=== PATIENT | male | born 1950 | race Caucasian/White ===

== ENCOUNTER → 2017-05-12 | Outpatient (CLI) | payer MEDICARE ==
--- NOTE | 2017-05-12 09:45 | MR ---
EXAMINATION TYPE: MR shoulder RT wo con DATE OF EXAM: 05/12/2017 COMPARISON: NONE HISTORY: Right shoulder pain and lack of movement TECHNIQUE: Multiplanar, multisequence imaging of the right shoulder is performed without contrast. FINDINGS: Rotator Cuff: Intrasubstance signal seen involving the distal margins of the infraspinatus and supras pinatus tendons near the insertion. Findings compatible with tendinosis and partial tear with no ret raction. Acromioclavicular Joint: Hypertrophic change and narrowing of the AC joint noted. There is no mass ef fect suggest impingement. Glenohumeral Joint: Joint space appears to be preserved. There is truncation of the anterior superior labrum suspicious for tear. Labrum: Truncation of the anterior superior labrum suspicious for tear. Biceps Tendon: There is thickening and increased signal the intracapsular portion of the biceps tendo n and biceps anchor compatible severe tendinosis and partial intrasubstance tear with no evidence of through thickness tear or retraction. Bone marrow signal: Cystic change involving the humeral head likely in the basis of reactive changes. IMPRESSION: 1. Marked thickening and increased signal in the intracapsular portion of the biceps tendon and bicep s anchor compatible severe tendinosis and intrasubstance tear. No through thickness tear or retractio n. 2. Tendinosis of the distal infraspinatus and supraspinatus tendons with partial intrasubstance tear but no evidence of retraction. Partial through thickness tear of the anterior fibers of the supraspin atus tendon near the insertion. 3. Anterior superior labral tear 4. Increased signal within the rotator cuff interval suggestive of capsulitis correlate clinically
== END | disposition home or self-care (01) ==
LOC: RADMRIMAIN 08:24
PROVIDERS: ATTEND Orthopaedic Surgery
DX: M75.111 Incomplete rotator cuff tear or rupture of right shoulder, not specified as traumatic (principal); S46.811A Strain of other muscles, fascia and tendons at shoulder and upper arm level, right arm, initial encounter; S43.401A Unspecified sprain of right shoulder joint, initial encounter; M67.911 Unspecified disorder of synovium and tendon, right shoulder

== ENCOUNTER 2017-07-15 13:21 | Day surgery (SDC) | payer MEDICARE ==
[2017-07-01 12:06] VITALS: BMI 27.8
--- NOTE | 2017-07-11 15:31 | HP ---
HISTORY AND PHYSICAL CHIEF COMPLAINT: Right shoulder pain. HISTORY OF PRESENT ILLNESS: The patient is a 66-year-old, right-hand dominant, retired gentleman who presents with progressive right shoulder pain for the past several months. He denies any specific new injury. He is having pain with overhead use and at night. He has tried medications, an injection, and therapy with minimal relief. He notes the pain does limit him. PAST MEDICAL HISTORY: Significant for hypertension, hyperlipidemia. PAST SURGICAL HISTORY: Significant for appendectomy, right knee surgery, tonsillectomy, vasectomy and hernia repair. CURRENT MEDICATIONS: 1. Aleve. 2. Aspirin. 3. Doxazosin. 4. Simvastatin. He denies drug allergies. FAMILY HISTORY: Significant for cancer. SOCIAL HISTORY: Significant for social alcohol use. 16-POINT REVIEW OF SYSTEMS: Otherwise reviewed and is noncontributory. PHYSICAL EXAMINATION: The patient is approximately 5 foot 11, 200 pounds of endomorphic habitus. HEENT exam is nonfocal. Neck is supple. On examination of his right shoulder, he is tender about the anterior subacromial space and bicipital groove. He has moderate subacromial crepitus. Active range of motion, forward elevation 155 degrees, external rotation with the arm side 55 degrees. Internal rotation to L1. Motor strength is 5- /5 for external rotation with the arms at the side and 5-/5 for abduction. Impingement, NEER, and Speed tests are positive. His distal neurovascular exam otherwise appears intact in the right upper extremity. MRI report from 05/12/2017 of the right shoulder shows bicipital tendinosis and possible SLAP tear. There is also rotator cuff tendinosis and possible partial- thickness tear. IMPRESSION: 1. Right shoulder impingement syndrome with rotator cuff tendinitis and possible partial-thickness tear. 2. Right bicipital tendinosis with possible SLAP tear as well. RECOMMENDATIONS: I talked to the patient at length regarding his treatment options. At this point, he continues to have significant pain and symptoms despite conservative measures. After thorough discussion, he opts to proceed with surgery. We will plan to proceed with right shoulder arthroscopy with probable subacromial decompression, possible rotator cuff repair versus debridement, and in addition to possible bicipital tendon release. We will likely perform that as an outpatient procedure. Risks and benefits were discussed at length in layman's terms. MMODL / IJN: [id number] /
[~2017-07-15 13:21] MED LIST: DEXAMETHASONE SOD PHOSPHATE 10 MG/ML 1 ML VIAL IV ONE; HYDROmorphone 1 MG/ML 1 ML SYRINGE IVP PRN; LACTATED RINGERS 1,000 ML IV SCH; LIDOCAINE 1% 20 ML VIAL (10MG/ML) FOR IV START INTRADERMA PRN; ONDANSETRON 4 MG/2 ML VIAL IVP ONE; SCOPOLAMINE 1.5MG/72HR PATCH TRANSDERM ONE; ceFAZolin 2 GM in SODIUM CHLORIDE 0.9% 100 ML IVPB ONE
[2017-07-15] MEDS ORDERED: MIDAZOLAM 2 MG/2 ML VIAL IV ONE (14:47)
[2017-07-15] MEDS ORDERED: fentaNYL (PF) 50 MCG/ML 2 ML AMP ONE (16:49)
[2017-07-15] MEDS ORDERED: PROPOFOL 10 MG/ML 20 ML VIAL IV ONE (16:49)
[2017-07-15] MEDS ORDERED: SUCCINYLCHOLINE CHLORIDE 100 MG/5 ML SYR IV ONE (16:49)
[2017-07-15] MEDS ORDERED: GLYCOPYRROLATE 0.2 MG/ML 2 ML VIAL ONE (16:49)
[2017-07-15] MEDS ORDERED: LIDOCAINE 1% INJ 10MG/ML (20 ML MDV) ONE (16:49)
[2017-07-15] MEDS ORDERED: ROCURONIUM BROMIDE 10 MG/ML 10 ML VIAL IV ONE (16:49)
[2017-07-15] MEDS ORDERED: NEOSTIGMINE 1 MG/ML 10 ML VIAL ONE (16:49)
[2017-07-15] MEDS ORDERED: ePHEDrine 50 MG/ML 1 ML AMP ONE (16:49)
[2017-07-15] MEDS ORDERED: MIDAZOLAM 2 MG/2 ML VIAL ONE (16:49)
[2017-07-15] MEDS ORDERED: EPINEPHrine (PF) 1 ML in SODIUM CHLORIDE 0.9% IRRIGATIO 3,000 ML IRRIGATION ONE ×7 (17:23→17:24)
--- NOTE | 2017-07-15 17:57 | P.OP ---
Date of Procedure: 07/15/17 Preoperative Diagnosis: Right shoulder impingement syndrome/partial thickness rotator cuff tear/ superior labral tear Postoperative Diagnosis: Same in addition to a partial thickness bursal surface rotator cuff tear/type II SLAP tear Procedure(s) Performed: Right shoulder arthroscopic subacromial decompression/superior labral debridement/biceps tenotomy/rotator cuff debridement Implants: Anesthesia: mechelle SIMMS Surgeon: Frank Sanchez [employer] Assembler #1: Florencio Hernandez Estimated Blood Loss (ml): 10 Pathology: none sent Condition: stable Disposition: PACU Indications for Procedure: The patient's a 66-year-old male who presents with progressive right shoulder pain despite conservative measures. A discussion of the risks and benefits of operative intervention versus continued conservative measures was made with the patient. He opted to proceed with surgery. Operative risks to include infection, neurovascular injury, development of blood clots, possible incomplete resolution of symptoms, possible worsening of symptoms and need for subsequent procedures was discussed. Informed consent was obtained. Operative Findings: As below Description of Procedure: The patient was brought to the operating room, and after induction of anesthesia , I examined the right shoulder. There is no gross block to passive motion. There is no gross glenohumeral instability. He is placed into a beachchair position. The bony processes were appropriately padded. The right upper extremity was prepped and draped in a normal fashion. The bony outlines the acromion, distal clavicle, and coracoid process were outlined with a skin marker. The glenohumeral joint was inflated with 50 mL of saline utilizing a spinal needle from posterior approach. A posterior portal was made through a 5 mm skin incision 1 cm medial and inferior to the posterior lateral border of the acromion. A blunt trocar was used to easily into the joint. Diagnostic arthroscopy was performed. An anterior portals made through a 5 motor skin incision just lateral to the coracoid process entering the joint above the subscapularis tendon. On inspection of the articular surface, minimal degenerative changes were noted. The anterior labrum was intact. On inspection the biceps anchor, a type II SLAP tear was noted with detachment. Operative options were considered this point at this point elected to proceed with tenotomy. The biceps was released from the superior labrum and allowed to retract the bicipital groove with the aid of electrocautery. The superior labrum was debrided back to stable base with a motorized shaver. On inspection the rotator cuff on the articular surface, it appeared to be intact. The posterior labrum was intact. The arthroscope was then placed into the subacromial space. A lateral portal was made through a millimeters skin incision 2% 2 cm inferior to the anterolateral border of the acromion. The soft tissue on the undersurface surface of the acromion was debrided with electrocautery clearly defining the anterior medial and lateral borders as well as the distal clavicle. An anterior inferior acromioplasty was performed with a motorized rosalba starting anterolateral, then extending this posteriorly, then extending this medially. I was able to convert to a flat acromion. This was verified on the posterior and lateral viewing portals. The coracoacromial ligament was detached from the anterior acromion with electrocautery. The rotator cuff was inspected. There was significant bursal thickening debrided with a motorized shaver. A partial thickness bursal surface tear involving the anterior aspect the supraspinatus was noted involving approximately 2-3 mm of thickness. This was debrided back to stable base with a motorized shaver. The remaining rotator cuff appeared stable and intact. The arthroscope was then removed. The portals were closed with simple 3-0 nylon suture. A sterile dressing was applied in addition to an abductor brace. Patient was then awoken from general anesthesia and transferred to the recovery room in good condition. Blood loss was estimated 10 mL. No complications were incurred. Sponge and needle counts were correct at the end of the case.
[2017-07-15 17:59] VITALS: TEMP 97
[2017-07-15] MEDS ORDERED: LACTATED RINGERS 1,000 ML IV ONE (18:20)
[2017-07-15 18:28] VITALS: RESP 16
[2017-07-15 18:41] VITALS: PULSE 76
[2017-07-15 18:55] VITALS: BP 150/76
== END 2017-07-15 19:14 | disposition home or self-care (01) ==
LOC: OR 13:21
PROVIDERS: ATTEND Orthopaedic Surgery
DX: M75.101 Unspecified rotator cuff tear or rupture of right shoulder, not specified as traumatic (principal); S43.431A Superior glenoid labrum lesion of right shoulder, initial encounter; X58.XXXA Exposure to other specified factors, initial encounter; I10 Essential (primary) hypertension; E78.5 Hyperlipidemia, unspecified; G25.81 Restless legs syndrome; Z79.1 Long term (current) use of non-steroidal anti-inflammatories (NSAID); Z79.899 Other long term (current) drug therapy
CPT/HCPCS: 29826; 29823; J2250; J1100; J2710; J0690; J2405; J0171; J2001; J3010; J0330; J2704

== ENCOUNTER 2018-06-14 18:59 | Emergency (ER) | payer MEDICARE ==
[2018-06-14] MEDS ORDERED: SODIUM CHLORIDE 0.9% 1,000 ML IV ONE (19:27)
[2018-06-14] MEDS ORDERED: ACETAMINOPHEN TAB 500 MG TAB PO STA (19:37)
[2018-06-14] MEDS ORDERED: IPRATROPIUM-ALBUTEROL 3 ML NEB INHALATION STA (19:37)
[2018-06-14] MEDS ORDERED: IBUPROFEN 600 MG TAB PO STA (19:37)
--- NOTE | 2018-06-14 19:44 | ED ---
URI HPI - General Chief Complaint: Upper Respiratory Infection Stated Complaint: POSS BRONCHITIS OR PNEUMONIA Time Seen by Provider: 06/14/18 19:24 Source: patient, RN notes reviewed Mode of arrival: ambulatory Limitations: no limitations - History of Present Illness Initial Comments: 67-year-old male presents emergency Department chief complaint fever, cough congestion. Patient states she's been sick 3 times last 1 month. He is been treated twice with azithromycin, steroids. In states that last 24 hours she developed high fever, 103 along with a productive cough. Patient has minimal sinus congestion at this time. He states that he aches all over at this time. Patient states that he has no history of lung disease he states he was a former smoker 20 some years ago. He has no official diagnosis COPD. Patient denies any sick contacts denies ear pain, abdominal pain, dysuria or hematuria. Patient does have mild nausea and headache. Patient denies any neck pain or neck stiffness. He has not taken any Tylenol or Motrin for his headache. - Related Data Home Medications Medication Instructions Recorded Confirmed Aspirin [Adult Low Dose Aspirin EC] 81 mg PO HS 07/01/17 07/01/17 Doxazosin Mesylate [Cardura] 8 mg PO HS 07/01/17 07/01/17 Multivitamin [Men's Multi-Vitamin] 1 each PO HS 07/01/17 07/01/17 Simvastatin 40 mg PO HS 07/01/17 07/01/17 rOPINIRole HCL 4 mg PO HS 07/01/17 07/01/17 Previous Rx's Medication Instructions Recorded HYDROcodone/APAP 7.5-325MG [[place] 1 each PO Q6HR PRN #30 tab 07/15/17 7.5] Levofloxacin [Levaquin] 500 mg PO DAILY #7 tab 06/14/18 Allergies Allergy/AdvReac Type Severity Reaction Status Date / Time pollen extracts AdvReac itchy Verified 07/15/17 14:31 eyes, congestion Review of Systems ROS Statement: Those systems with pertinent positive or pertinent negative responses have been documented in the HPI. ROS Other: All systems not noted in ROS Statement are negative. Past Medical History Past Medical History: Hyperlipidemia, Hypertension Additional Past Medical History / Comment(s): restless leg syndrome History of Any Multi-Drug Resistant Organisms: None Reported Past Surgical History: Appendectomy, Hernia Repair, Orthopedic Surgery, Tonsillectomy Additional Past Surgical History / Comment(s): R Knee, Vasectomy Past Anesthesia/Blood Transfusion Reactions: No Reported Reaction Past Psychological History: No Psychological Hx Reported Smoking Status: Former smoker Past Alcohol Use History: Occasional Past Drug Use History: None Reported - Past Family History Mother Family Medical History: Cancer General Exam Limitations: no limitations General appearance: alert, in no apparent distress Head exam: Present: atraumatic, normocephalic, normal inspection Eye exam: Present: normal appearance, PERRL, EOMI. Absent: scleral icterus, conjunctival injection, periorbital swelling ENT exam: Present: normal exam, normal oropharynx, mucous membranes moist, TM's normal bilaterally, normal external ear exam Neck exam: Present: normal inspection, full ROM. Absent: tenderness, meningismus, lymphadenopathy Respiratory exam: Present: normal lung sounds bilaterally. Absent: respiratory distress, wheezes, rales, rhonchi, stridor Cardiovascular Exam: Present: normal rhythm, tachycardia, normal heart sounds. Absent: systolic murmur, diastolic murmur, rubs, gallop, clicks GI/Abdominal exam: Present: soft, normal bowel sounds. Absent: distended, tenderness, guarding, rebound, rigid Neurological exam: Present: alert, oriented X3, CN II-XII intact Skin exam: Present: warm, dry, intact, normal color. Absent: rash Course Vital Signs 06/14/18 06/14/18 06/14/18 19:14 19:19 20:18 Temperature 103 F H Pulse Rate 104 H 86 Respiratory 20 21 Rate Blood Pressure 151/69 O2 Sat by Pulse 93 L Oximetry 06/14/18 06/14/18 20:25 20:51 Temperature 102.1 F H Pulse Rate 83 78 Respiratory 19 Rate Blood Pressure 122/61 O2 Sat by Pulse 96 Oximetry Medical Decision Making - Medical Decision Making 67-year-old male present emergency department with chief complaint of cough congestion fever. Patient had lab work, blood cultures, chest x-ray. There is no evidence of pneumonia. I discussed with the patient that this may be viral in nature. Patient will place him on for 7 days pending blood cultures. Patient follow-up with PCP tomorrow return parameters were discussed. - Lab Data Result diagrams: 06/14/18 19:40 06/14/18 19:40 Lab Results 06/14/18 06/14/18 06/14/18 Range/Units 19:40 19:40 19:40 WBC 4.3 (3.8-10.6) k/uL RBC 4.78 (4.30-5.90) m/uL Hgb 13.8 (13.0-17.5) gm/dL Hct 43.6 (39.0-53.0) % MCV 91.1 (80.0-100.0) fL MCH 28.9 (25.0-35.0) pg MCHC 31.8 (31.0-37.0) g/dL RDW 14.0 (11.5-15.5) % Plt Count 167 (150-450) k/uL Neutrophils % 82 % Lymphocytes % 7 % Monocytes % 7 % Eosinophils % 2 % Basophils % 0 % Neutrophils # 3.5 (1.3-7.7) k/uL Lymphocytes # 0.3 L (1.0-4.8) k/uL Monocytes # 0.3 (0-1.0) k/uL Eosinophils # 0.1 (0-0.7) k/uL Basophils # 0.0 (0-0.2) k/uL Sodium 139 (137-145) mmol/L Potassium 4.2 (3.5-5.1) mmol/L Chloride 106 (98-107) mmol/L Carbon Dioxide 26 (22-30) mmol/L Anion Gap 7 mmol/L BUN 19 (9-20) mg/dL Creatinine 1.20 (0.66-1.25) mg/dL Est GFR (CKD-EPI)AfAm 72 (>60 ml/min/1.73 sqM) Est GFR (CKD-EPI)NonAf 62 (>60 ml/min/1.73 sqM) Glucose 89 (74-99) mg/dL Plasma Lactic Acid Balwinder 1.0 (0.7-2.0) mmol/L Calcium 9.2 (8.4-10.2) mg/dL Total Bilirubin 0.3 (0.2-1.3) mg/dL AST 32 (17-59) U/L ALT 44 (21-72) U/L Alkaline Phosphatase 59 (38-126) U/L Total Protein 6.3 (6.3-8.2) g/dL Albumin 4.0 (3.5-5.0) g/dL Disposition Clinical Impression: Fever, Upper respiratory infection Disposition: HOME SELF-CARE Condition: Stable Instructions: Upper Respiratory Infection (ED) Additional Instructions: Please return to the Emergency Department if symptoms worsen or any other concerns. Prescriptions: Levofloxacin [Levaquin] 500 mg PO DAILY #7 tab Is patient prescribed a controlled substance at d/c from ED?: No Referrals: Unruly Melendrez MD [Primary Care Provider] - 1-2 days Time of Disposition: 21:04
[2018-06-14 19:58] LABS: Basophils % (A) 0 %; Eosinophils # (A) 0.1 k/uL (0-0.7); Eosinophils % (A) 2 %; HCT 43.6 % (39.0-53.0); HGB 13.8 gm/dL (13.0-17.5); Lymphocytes # (A) 0.3 k/uL (1.0-4.8); Lymphocytes % (A) 7 %; MCH 28.9 pg (25.0-35.0); MCHC 31.8 g/dL (31.0-37.0); MCV 91.1 fL (80.0-100.0); Mean Platelet Volume 8.8; Monocytes # (A) 0.3 k/uL (0-1.0); Monocytes % (A) 7 %; Neutrophils # (A) 3.5 k/uL (1.3-7.7); Neutrophils % (A) 82 %; Platelet Count 167 k/uL (150-450); RBC 4.78 m/uL (4.30-5.90); WBC 4.3 k/uL (3.8-10.6)
[2018-06-14 20:09] LABS: Calcium 9.2 mg/dL (8.4-10.2); Potassium 4.2 mmol/L (3.5-5.1); Total Bilirubin 0.3 mg/dL (0.2-1.3); Total Protein 6.3 g/dL (6.3-8.2)
--- NOTE | 2018-06-14 20:37 | XR ---
EXAMINATION TYPE: XR chest 2V DATE OF EXAM: 06/14/2018 COMPARISON: None HISTORY: 67-year-old male cough and fever TECHNIQUE: PA and lateral views FINDINGS: Heart upper limits of normal in size. Aorta and pulmonary vasculature within normal limits. Mild inte rstitial prominence is a chronic appearance. Strandy atelectasis at the left base. No consolidation o r pleural effusion. IMPRESSION: Chronic appearing changes without acute process seen. Borderline heart size.
[2018-06-14 20:52] VITALS: PULSE 78
[2018-06-14 21:16] VITALS: TEMP 100
[2018-06-14 21:17] VITALS: BP 116/63; RESP 18
== END 2018-06-14 21:17 | disposition home or self-care (01) ==
LOC: EC 18:59
DX: J06.9 Acute upper respiratory infection, unspecified (principal); R11.0 Nausea; E78.5 Hyperlipidemia, unspecified; I10 Essential (primary) hypertension; G25.81 Restless legs syndrome; Z87.891 Personal history of nicotine dependence; Z79.82 Long term (current) use of aspirin; Z79.899 Other long term (current) drug therapy; Z91.048 Other nonmedicinal substance allergy status
CPT/HCPCS: 36415; 71046; 80053; 83605; 85025; 87040; 94640; 96360; 99284

== ENCOUNTER 2020-07-30 12:25 | Emergency (ER) | payer MEDICARE ==
[2020-07-30 12:31] VITALS: RESP 18; TEMP 98
[2020-07-30] MEDS ORDERED: SODIUM CHLORIDE 0.9% 1,000 ML IV ONE (12:46)
[2020-07-30] MEDS ORDERED: HYDROmorphone 1 MG/ML 1 ML SYRINGE IVP STA ×2 (12:46→15:01)
[2020-07-30] MEDS ORDERED: ONDANSETRON 4 MG/2 ML VIAL IVP STA (12:48)
--- NOTE | 2020-07-30 12:51 | ED ---
General Adult HPI - General Source: patient, RN notes reviewed, old records reviewed Mode of arrival: ambulatory Limitations: no limitations <Bridgett Benjamin - Last Filed: 07/30/20 14:32> <Mj Kaba - Last Filed: 07/30/20 15:56> - General Chief complaint: Back Pain/Injury Stated complaint: Kidney Pain Time Seen by Provider: 07/30/20 12:37 - History of Present Illness Initial comments: Patient is a 69-year-old male who presents the ER today with complaints of left flank pain and ecchymosis and pain with movement after falling into a nightstand on Friday. He reports that he was [place] his [place] doing a [place] outing and fell in the night when it was dark onto the nightstand. Patient reportedly is not on blood thinners. He denies any nausea or vomiting. He states that he awoke with worsening pain and swelling into his back. He states he's had no change in urination. He denies any chest pain. Patient reports that he did golf yesterday and after 4 holes became worse for pain. (Bridgett Benjamin) - Related Data Home Medications Medication Instructions Recorded Confirmed Aspirin [Adult Low Dose Aspirin EC] 81 mg PO HS 07/01/17 07/01/17 Doxazosin Mesylate [Cardura] 8 mg PO HS 07/01/17 07/01/17 Multivitamin [Men's Multi-Vitamin] 1 each PO HS 07/01/17 07/01/17 Simvastatin 40 mg PO HS 07/01/17 07/01/17 rOPINIRole HCL 4 mg PO HS 07/01/17 07/01/17 Previous Rx's Medication Instructions Recorded HYDROcodone/APAP 7.5-325MG [[place] 1 each PO Q6HR PRN #30 tab 07/15/17 7.5] Levofloxacin [Levaquin] 500 mg PO DAILY #7 tab 06/14/18 HYDROcodone/APAP 5-325MG [[place] 1 tab PO Q6HR PRN #12 tab 07/30/20 5-325] Ibuprofen [Motrin] 600 mg PO Q8HR PRN #24 tab 07/30/20 Allergies Allergy/AdvReac Type Severity Reaction Status Date / Time pollen extracts AdvReac itchy Verified 07/30/20 12:31 eyes, congestion Review of Systems ROS Other: All systems not noted in ROS Statement are negative. <Bridgett Benjamin - Last Filed: 07/30/20 14:32> ROS Other: All systems not noted in ROS Statement are negative. <Mj Kaba - Last Filed: 07/30/20 15:56> ROS Statement: Those systems with pertinent positive or pertinent negative responses have been documented in the HPI. Past Medical History Past Medical History: Cancer, Hyperlipidemia, Hypertension Additional Past Medical History / Comment(s): restless leg syndrome, melanoma History of Any Multi-Drug Resistant Organisms: None Reported Past Surgical History: Appendectomy, Hernia Repair, Orthopedic Surgery, Tonsillectomy Additional Past Surgical History / Comment(s): R Knee, Vasectomy Past Anesthesia/Blood Transfusion Reactions: No Reported Reaction Past Psychological History: No Psychological Hx Reported Smoking Status: Never smoker Past Alcohol Use History: Occasional Past Drug Use History: None Reported - Past Family History Mother Family Medical History: Cancer <LisetjuliocesarBridgett - Last Filed: 07/30/20 14:32> General Exam Limitations: no limitations General appearance: alert, in no apparent distress Head exam: Present: atraumatic Eye exam: Present: normal appearance, PERRL, EOMI. Absent: scleral icterus, conjunctival injection, periorbital swelling ENT exam: Present: normal exam, mucous membranes moist Neck exam: Present: normal inspection. Absent: tenderness, meningismus, lymphadenopathy Respiratory exam: Present: normal lung sounds bilaterally. Absent: respiratory distress, wheezes, rales, rhonchi, stridor Cardiovascular Exam: Present: regular rate, normal rhythm, normal heart sounds. Absent: systolic murmur, diastolic murmur, rubs, gallop, clicks GI/Abdominal exam: Present: soft, normal bowel sounds, other (Patient has significant hematoma to the left flank.). Absent: distended, tenderness, guarding, rebound, rigid Extremities exam: Present: normal inspection, full ROM, normal capillary refill. Absent: tenderness, pedal edema, joint swelling, calf tenderness Back exam: Present: normal inspection Neurological exam: Present: alert, oriented X3, CN II-XII intact Psychiatric exam: Present: normal affect, normal mood Skin exam: Present: warm, dry, intact, normal color. Absent: rash <AranyBridgett blandon - Last Filed: 07/30/20 14:32> - General Exam Comments Initial Comments: 69-year-old male. Alert and oriented 3. (Bridgett Benjamin) Course Vital Signs 07/30/20 07/30/20 07/30/20 12:26 13:51 14:53 Temperature 98 F Pulse Rate 66 52 L 55 L Respiratory 18 18 18 Rate Blood Pressure 180/80 149/81 157/83 O2 Sat by Pulse 96 97 96 Oximetry Medical Decision Making - Lab Data Result diagrams: 07/30/20 12:58 07/30/20 12:58 - Radiology Data Radiology results: report reviewed <Bridgett Benjamin - Last Filed: 07/30/20 14:32> - Lab Data Result diagrams: 07/30/20 12:58 07/30/20 12:58 <Mj Kaba - Last Filed: 07/30/20 15:56> - Medical Decision Making 6-year-old male presents with left flank hematoma after falling on Friday evening and striking his back over the vanity. He was at the tear. He did play round of golf yesterday returned home to his . His brought him in for concern for a developing hematoma on the back. He reports pain with significant movement. Patient labwork was reviewed to arrival. No change in urine or bowel habits. Exam shows significant hematoma and left flank. Patient case was discussed with Dr. Kaba who will take over patient's case at 2:30 PM (Bridgett Benjamin) Patient did receive CT of the abdomen pelvis, which did include left posterior rib fracture. On review radiology this is an isolated rib fracture. Patient's pain is controlled in the emergency department. He is offered observation for pain control but prefers to be discharged home. He will be prescribed Motrin and [place]. He is given an incentive spirometer in the emergency department. He has good follow-up as an outpatient. He will return with worsening or changing symptoms. (Mj Kaba) - Lab Data Lab Results 07/30/20 07/30/20 07/30/20 Range/Units 12:58 12:58 12:58 WBC 9.1 (3.8-10.6) k/uL RBC 5.17 (4.30-5.90) m/uL Hgb 15.1 (13.0-17.5) gm/dL Hct 48.0 (39.0-53.0) % MCV 92.8 (80.0-100.0) fL MCH 29.3 (25.0-35.0) pg MCHC 31.6 (31.0-37.0) g/dL RDW 13.6 (11.5-15.5) % Plt Count 161 (150-450) k/uL Neutrophils % 79 % Lymphocytes % 12 % Monocytes % 8 % Eosinophils % 1 % Basophils % 0 % Neutrophils # 7.2 (1.3-7.7) k/uL Lymphocytes # 1.1 (1.0-4.8) k/uL Monocytes # 0.7 (0-1.0) k/uL Eosinophils # 0.1 (0-0.7) k/uL Basophils # 0.0 (0-0.2) k/uL Manual Slide Review Performed Large Platelets Present Poikilocytosis (manual Present PT (9.0-12.0) sec INR (<1.2) APTT (22.0-30.0) sec Sodium 138 (137-145) mmol/L Potassium 4.5 (3.5-5.1) mmol/L Chloride 106 (98-107) mmol/L Carbon Dioxide 27 (22-30) mmol/L Anion Gap 5 mmol/L BUN 30 H (9-20) mg/dL Creatinine 1.02 (0.66-1.25) mg/dL Est GFR (CKD-EPI)AfAm 86 (>60 ml/min/1.73 sqM) Est GFR (CKD-EPI)NonAf 74 (>60 ml/min/1.73 sqM) Glucose 96 (74-99) mg/dL Calcium 9.3 (8.4-10.2) mg/dL Total Bilirubin 0.4 (0.2-1.3) mg/dL AST 40 (17-59) U/L ALT 25 (4-49) U/L Alkaline Phosphatase 79 (38-126) U/L Total Protein 6.9 (6.3-8.2) g/dL Albumin 4.4 (3.5-5.0) g/dL Lipase 115 (23-300) U/L Urine Color Yellow Urine Appearance Clear (Clear) Urine pH 5.5 (5.0-8.0) Ur Specific Woodson 1.024 (1.001-1.035) Urine Protein Negative (Negative) Urine Glucose (UA) Negative (Negative) Urine Ketones Negative (Negative) Urine Blood Negative (Negative) Urine Nitrite Negative (Negative) Urine Bilirubin Negative (Negative) Urine Urobilinogen <2.0 (<2.0) mg/dL Ur Leukocyte Esterase Negative (Negative) 07/30/20 Range/Units 12:58 WBC (3.8-10.6) k/uL RBC (4.30-5.90) m/uL Hgb (13.0-17.5) gm/dL Hct (39.0-53.0) % MCV (80.0-100.0) fL MCH (25.0-35.0) pg MCHC (31.0-37.0) g/dL RDW (11.5-15.5) % Plt Count (150-450) k/uL Neutrophils % % Lymphocytes % % Monocytes % % Eosinophils % % Basophils % % Neutrophils # (1.3-7.7) k/uL Lymphocytes # (1.0-4.8) k/uL Monocytes # (0-1.0) k/uL Eosinophils # (0-0.7) k/uL Basophils # (0-0.2) k/uL Manual Slide Review Large Platelets Poikilocytosis (manual PT 10.0 (9.0-12.0) sec INR 1.0 (<1.2) APTT 25.4 (22.0-30.0) sec Sodium (137-145) mmol/L Potassium (3.5-5.1) mmol/L Chloride (98-107) mmol/L Carbon Dioxide (22-30) mmol/L Anion Gap mmol/L BUN (9-20) mg/dL Creatinine (0.66-1.25) mg/dL Est GFR (CKD-EPI)AfAm (>60 ml/min/1.73 sqM) Est GFR (CKD-EPI)NonAf (>60 ml/min/1.73 sqM) Glucose (74-99) mg/dL Calcium (8.4-10.2) mg/dL Total Bilirubin (0.2-1.3) mg/dL AST (17-59) U/L ALT (4-49) U/L Alkaline Phosphatase (38-126) U/L Total Protein (6.3-8.2) g/dL Albumin (3.5-5.0) g/dL Lipase (23-300) U/L Urine Color Urine Appearance (Clear) Urine pH (5.0-8.0) Ur Specific Woodson (1.001-1.035) Urine Protein (Negative) Urine Glucose (UA) (Negative) Urine Ketones (Negative) Urine Blood (Negative) Urine Nitrite (Negative) Urine Bilirubin (Negative) Urine Urobilinogen (<2.0) mg/dL Ur Leukocyte Esterase (Negative) Disposition <Bridgett Benjamin - Last Filed: 07/30/20 14:32> Is patient prescribed a controlled substance at d/c from ED?: No Time of Disposition: 15:56 <Mj Kaba - Last Filed: 07/30/20 15:56> Clinical Impression: Closed rib fracture Disposition: HOME SELF-CARE Condition: Good Instructions (If sedation given, give patient instructions): Rib Fracture (ED) Prescriptions: Ibuprofen [Motrin] 600 mg PO Q8HR PRN #24 tab PRN Reason: Pain HYDROcodone/APAP 5-325MG [[place]kin 5-325] 1 tab PO Q6HR PRN #12 tab PRN Reason: Pain Referrals: Unruly Melendrez MD [Primary Care Provider] - 1-2 days
[2020-07-30] MEDS ORDERED: SODIUM CHLORIDE 0.9% 1,000 ML IV SCH (13:00)
[2020-07-30 13:20] LABS: Basophils % (A) 0 %; Eosinophils # (A) 0.1 k/uL (0-0.7); Eosinophils % (A) 1 %; HGB 15.1 gm/dL (13.0-17.5); Lymphocytes # (A) 1.1 k/uL (1.0-4.8); Lymphocytes % (A) 12 %; MCH 29.3 pg (25.0-35.0); MCHC 31.6 g/dL (31.0-37.0); MCV 92.8 fL (80.0-100.0); Mean Platelet Volume 10.5; Monocytes # (A) 0.7 k/uL (0-1.0); Monocytes % (A) 8 %; Neutrophils # (A) 7.2 k/uL (1.3-7.7); Neutrophils % (A) 79 %; Platelet Count 161 k/uL (150-450); RBC 5.17 m/uL (4.30-5.90); RDW 13.6 % (11.5-15.5); WBC 9.1 k/uL (3.8-10.6)
[2020-07-30 13:28] LABS: Albumin 4.4 g/dL (3.5-5.0); Calcium 9.3 mg/dL (8.4-10.2); Potassium 4.5 mmol/L (3.5-5.1); Total Bilirubin 0.4 mg/dL (0.2-1.3); Total Protein 6.9 g/dL (6.3-8.2)
[2020-07-30 13:34] LABS: Appearance,Urine Clear (Clear); Bilirubin,Urine Negative (Negative); Blood,Urine Negative (Negative); Color,Urine Yellow; Glucose,Urine (UA) Negative (Negative); Ketones,Urine Negative (Negative); Leukocyte Esterase,Urine Negative (Negative); Nitrite,Urine Negative (Negative); PH, Urine 5.5 (5.0-8.0); Protein,Urine Negative (Negative); Specific Gravity,Urine 1.024 (1.001-1.035); Urobilinogen,Urine <2.0 mg/dL (<2.0)
[2020-07-30 13:38] LABS: Partial Thromboplastin Time 25.4 sec (22.0-30.0)
[2020-07-30 13:39] LABS: Large Platelets Present; Poikilocytosis (M) Present
--- NOTE | 2020-07-30 14:04 | XR ---
Chest x-ray with left RIBS HISTORY: Trauma and pain Correlation to prior chest x-ray 03/29/2018 Frontal view of the chest, 4 views the left ribs There is no evident displaced rib fracture. No pneumothorax or pleural effusion. Chest x-ray is stabl e. IMPRESSION: No acute abnormality.
[2020-07-30 14:54] VITALS: BP 157/83; PULSE 55
--- NOTE | 2020-07-30 14:56 | CT ---
EXAMINATION TYPE: CT abdomen pelvis w con DATE OF EXAM: 07/30/2020 COMPARISON: None HISTORY: Right flank pain. Ecchymosis and trauma. CT DLP: 1260.5 mGycm Automated exposure control for dose reduction was used. TECHNIQUE: Helical acquisition of images from the lung bases through the pelvis have been completed. CONTRAST: Performed without Oral Contrast and with IV Contrast, patient injected with 100 mL of Isovue 300. FINDINGS: LUNG BASES: No significant abnormality is appreciated. AORTA: No significant abnormality is appreciated. LIVER/GB: Low dense focus within the left lobe likely represents a cyst and is subcentimeter in size, axial image #17, gallbladder is normal. PANCREAS: No significant abnormality is seen. SPLEEN: No significant abnormality is seen. ADRENALS: No significant abnormality is seen. KIDNEYS: No significant abnormality is seen. REPRODUCTIVE ORGANS: No significant abnormality is seen BOWEL: Diverticular changes associated with the sigmoid colon. Appendix is not visualized, metallic clip is present at this level, correlate for surgical history FREE AIR: No Free Air visible. ASCITES: None visible. PELVIC ADENOPATHY: None visualized. RETROPERITONEAL ADENOPATHY: No Retroperitoneal Adenopathy visible. URINARY BLADDER: No significant abnormality is seen. OSSEOUS STRUCTURES: No significant abnormality is seen. IMPRESSION: NO ACUTE TRAUMATIC ABNORMALITY IS EVIDENT.
[2020-07-30] MEDS ORDERED: HYDROmorphone 0.5 MG/0.5 ML SYRINGE IVP STA (15:01)
[2020-07-30] MEDS ORDERED: KETOROLAC 15 MG/ML 1 ML VIAL IVP STA (15:01)
== END 2020-07-30 16:08 | disposition home or self-care (01) ==
LOC: EC 12:25
DX: S22.32XA Fracture of one rib, left side, initial encounter for closed fracture (principal); S30.1XXA Contusion of abdominal wall, initial encounter; E78.5 Hyperlipidemia, unspecified; I10 Essential (primary) hypertension; G25.81 Restless legs syndrome; Z79.82 Long term (current) use of aspirin; Z79.899 Other long term (current) drug therapy; Z91.048 Other nonmedicinal substance allergy status; Z85.820 Personal history of malignant melanoma of skin; W08.XXXA Fall from other furniture, initial encounter; Y92.89 Other specified places as the place of occurrence of the external cause
CPT/HCPCS: 99285; 96374; 96375 ×2; 96376; 96361; 36415; 80053; 83690; 85025; 85610; 85730; 81003; 71101; 74177; J2405; J1170; J1885; Q9967

== ENCOUNTER → 2023-04-21 | Outpatient (CLI) | payer MEDICARE ==
--- NOTE | 2023-04-23 22:18 | MR ---
EXAMINATION TYPE: MR knee RT wo con DATE OF EXAM: 04/21/2023 COMPARISON: Outside radiograph 04/21/2023 HISTORY: 72-year-old male M2 5.561, Rt knee pain and swelling TECHNIQUE: Multiplanar, multisequence imaging of the right knee is performed without IV contrast. FINDINGS: Suspect a small partial thickness tear of the deep ACL fibers with an associated 1.2 cm ganglion cyst . PCL is intact. There is edema on either side of the intact MCL fibers. There is increased signal along the popliteus tendon. LCL complex are otherwise intact. The medial meniscus is severely macerated and torn. The body and posterior horn are severely fragment ed and small. Moderate irregular cartilage loss throughout the mid medial compartment with marginal s purring and some reactive subchondral marrow signal change. Small inner margin radial tear of the lateral meniscus. The body of the meniscus appears mildly extru ded. There is degenerative spurring in the lateral compartment with moderate irregular cartilage loss along the posterior weightbearing aspect of the lateral femoral condyle. Mild volume loss of patellar articular cartilage. Mild marginal spurring. There is a [id number] joint effusion with moderate synovitis along the suprapatellar pouch. Ge neralized soft tissue swelling including deep soft tissue swelling could reflect some extravasation o f joint fluid. Some insertional quadriceps tendinosis and minimal proximal patellar tendinosis involving the deep fi bers. Trace effusion in the deep infrapatellar bursa. Mild edema of the gastrocnemius and hamstrings musculature. Normal coronary artery anatomy and muscle bulk. No suspicious bone marrow replacement. IMPRESSION: 1. Small partial thickness tear deep ACL fibers with an associated 1.2 cm ganglion cyst. 2. Grade 1 MCL sprain. Additional popliteus tendinosis versus contusion. 3. The medial meniscus is severely macerated and diffusely deranged and torn. Mild to moderate overal l medial compartmental OA. 4. Tiny inner margin radial tear of the lateral meniscus. 5. Mild degenerative change in the lateral and patellofemoral compartments. 6. Small to moderate joint effusion but with moderate synovitis especially within the suprapatellar p ouch. 7. Generalized soft tissue swelling including deep soft tissue edema which could reflect some extrava sated joint fluid. Tiny leaking Lantigua's cyst. 8. Mild edema within the hamstring and gastrocnemius musculature could reflect edema reactive to alte red biomechanics or mild muscle strains.
== END | disposition home or self-care (01) ==
LOC: RADMRIMAIN 19:28
PROVIDERS: ATTEND Orthopaedic Surgery
DX: S83.241A Other tear of medial meniscus, current injury, right knee, initial encounter (principal); S83.281A Other tear of lateral meniscus, current injury, right knee, initial encounter; M71.21 Synovial cyst of popliteal space [Baker], right knee; M67.461 Ganglion, right knee; M25.461 Effusion, right knee

== ENCOUNTER → 2024-07-08 | Outpatient (CLI) | payer MEDICARE | END | disposition home or self-care (01) | LOC: LABPAT 12:11 | PROVIDERS: ATTEND Orthopaedic Surgery | DX: Z01.812 Encounter for preprocedural laboratory examination (principal); M17.11 Unilateral primary osteoarthritis, right knee; Z22.322 Carrier or suspected carrier of Methicillin resistant Staphylococcus aureus | CPT/HCPCS: 87070 ==

== ENCOUNTER 2024-08-17 10:26 | Day surgery (SDC) | payer MEDICARE ==
--- NOTE | 2024-08-16 08:13 | P.HPOR ---
History of Present Illness H&P Date: 08/16/24 Chief Complaint: Right knee pain The patient is a 73-year-old male who presents with progressive right knee pain for the past several years worsening recently. He notes buckling or locking in addition to pain with weightbearing activities. He's been wearing a brace and has tried previous injections and medications with only temporary partial relief. He has a history of a right knee arthroscopy. Review of Systems Per HPI Past Medical History Past Medical History: Cancer, Hyperlipidemia, Hypertension Additional Past Medical History / Comment(s): restless leg syndrome, melanoma History of Any Multi-Drug Resistant Organisms: None Reported Past Surgical History: Appendectomy, Hernia Repair, Orthopedic Surgery, Tonsillectomy Additional Past Surgical History / Comment(s): R Knee, Vasectomy lft arm melanoma removed , rt shoulder scope Past Anesthesia/Blood Transfusion Reactions: No Reported Reaction Smoking Status: Former smoker - Past Family History Mother Family Medical History: Cancer Medications and Allergies Home Medications Medication Instructions Recorded Confirmed Type Aspirin [Adult Low Dose Aspirin EC] 81 mg PO HS 07/01/17 08/11/24 History Doxazosin Mesylate [Cardura] 8 mg PO HS 07/01/17 08/11/24 History Multivitamin [Men's Multi-Vitamin] 1 each PO HS 07/01/17 08/11/24 History Simvastatin 40 mg PO HS 07/01/17 08/11/24 History rOPINIRole HCL 4 mg PO HS 07/01/17 08/11/24 History Allergies Allergy/AdvReac Type Severity Reaction Status Date / Time No Known Allergies Allergy Verified 08/11/24 11:33 Physical Examination - Knee right Appearance: effusion Effusion grade: trace Varus alignment in stance: 5 degrees Tenderness with palpation: anterior, medial Pain: throughout ROM Gait: limping ROM: extension: -5 degrees ROM: flexion: 110 degrees Meniscal tests: medial meniscal tests: positive, medial joint line pain: positive Results Patient is a well-developed well-nourished male approximately 5 foot 11, 198 pounds of his morbid habitus. HEENT exam is nonfocal, neck is supple. He has painless passive motion of the right hip. Straight leg raise negative. His distal neurovascular appears intact in the right lower extremity. - Diagnostic results Knee x-ray: image reviewed (X-rays of the right knee obtained in the office show severe medial compartment osteoarthrosis.) Assessment and Plan Assessment: Right knee severe medial compartment osteoarthrosis Plan: I talked to the patient at length regarding his condition along with treatment options. At this point he is quite symptomatic having pain and mechanical symptoms related to his right knee osteoarthrosis despite conservative measures. After a thorough discussion he opts to proceed with surgery. We'll plan to proceed with right total knee arthroplasty. Risks and benefits were discussed at length in layman's terms. we will institute DVT prophylaxis postoperatively.
[~2024-08-17 10:26] MED LIST changes: -DEXAMETHASONE SOD PHOSPHATE 10 MG/ML 1 ML VIAL IV ONE; -HYDROmorphone 1 MG/ML 1 ML SYRINGE IVP PRN; -LACTATED RINGERS 1,000 ML IV SCH; -LIDOCAINE 1% 20 ML VIAL (10MG/ML) FOR IV START INTRADERMA PRN; -ONDANSETRON 4 MG/2 ML VIAL IVP ONE; -SCOPOLAMINE 1.5MG/72HR PATCH TRANSDERM ONE; +TRANEXAMIC 1,000 MG/100ML-NACL 1,000 MG in SALINE 1 100ML.BAG IVPB PRN; -ceFAZolin 2 GM in SODIUM CHLORIDE 0.9% 100 ML IVPB ONE
[2024-08-17] MEDS: IV FLUID CONTINUATION 1,000 ML IV ONE (10:47)
[2024-08-17] MEDS: ACETAMINOPHEN TAB 500 MG TAB PO PRN (11:04)
[2024-08-17] MEDS: MELOXICAM 7.5 MG TAB PO PRN (11:05)
[2024-08-17] MEDS: DEXAMETHASONE SOD PHOSPHATE 4 MG/ML 1 ML VIAL IV ONE (11:06)
[2024-08-17] MEDS: LACTATED RINGERS 1,000 ML IV SCH (11:07)
[2024-08-17] MEDS: ONDANSETRON 4 MG/2 ML VIAL IVP ONE (11:07)
[2024-08-17] MEDS: MIDAZOLAM 2 MG/2 ML VIAL IV PRN (11:19)
[2024-08-17] MEDS: fentaNYL (PF) 50 MCG/ML 2 ML AMP IVP PRN (11:19)
[2024-08-17] MEDS ORDERED: WATER FOR INJECTION, STERILE 10 ML VIAL IV ONE (11:32)
[2024-08-17] MEDS ORDERED: fentaNYL (PF) 50 MCG/ML 2 ML AMP ONE (11:32)
[2024-08-17] MEDS ORDERED: MIDAZOLAM 2 MG/2 ML VIAL ONE (11:32)
[2024-08-17] MEDS ORDERED: ePHEDrine 50 MG/ML 1 ML VIAL ONE (11:32)
[2024-08-17] MEDS ORDERED: TRANEXAMIC 1,000 MG/100ML-NACL PREMIX BAG ONE (11:32)
[2024-08-17] MEDS ORDERED: ROPIVACAINE 5 MG/ML 30 ML VIAL ONE (11:32)
[2024-08-17] MEDS ORDERED: PROPOFOL 10 MG/ML 20 ML VIAL IV ONE (11:32)
[2024-08-17] MEDS ORDERED: GLYCOPYRROLATE 0.2 MG/ML 2 ML VIAL ONE (11:32)
--- NOTE | 2024-08-17 11:58 | P.ANPRN ---
Procedure Note - Anesthesia - Nerve Block Performed Right iPack Single Time Out Performed: Yes (1119) Date of Procedure: 08/17/24 Procedure Start Time: : Procedure Stop Time: Location of Patient: PreOp Indication: Acute Post-Operative Pain, Requested by Surgeon Specifically requested for management of pain by DrGregory: Ronald Garcia Sedation Type: Sedate with meaningful contact maintained Preparation: Sterile Prep Position: Supine Catheter: None Needle Types: Pajunk Needle Gauge: 21 Ultrasound used to visualize needle placement: Yes Ultrasound used to observe medication spread: Yes Injectate: 0.5% Ropivacaine (see comment for volume) (20cc) Blood Aspirated: No Pain Paresthesia on Injection Noted: No Resistance on Injection: Normal Image Stored and Saved: Yes Events: Uneventful and Well Tolerated
--- NOTE | 2024-08-17 11:58 | P.ANPRN ---
Procedure Note - Anesthesia - Nerve Block Performed Right Adductor Canal Single Time Out Performed: Yes (1119) Date of Procedure: 08/17/24 Procedure Start Time: : Procedure Stop Time: Location of Patient: PreOp Indication: Acute Post-Operative Pain, Requested by Surgeon Specifically requested for management of pain by : Frank Sanchez Sedation Type: Sedate with meaningful contact maintained Preparation: Sterile Prep Position: Supine Catheter Depth at Skin (cm): 8 Catheter: Indwelling Needle Types: Pajunk Needle Gauge: 18 Ultrasound used to visualize needle placement: Yes Ultrasound used to observe medication spread: Yes Injectate: 0.5% Ropivacaine (see comment for volume) (20cc) Blood Aspirated: No Pain Paresthesia on Injection Noted: No Resistance on Injection: Normal Image Stored and Saved: Yes Events: Uneventful and Well Tolerated
[2024-08-17] MEDS: ceFAZolin 1,000 MG in SODIUM CHLORIDE 0.9% 1,000 ML IRRIGATION ONE (12:03)
[2024-08-17] MEDS ORDERED: MAGNESIUM HYDROXIDE 2,400 MG/30 ML CUP PO PRN (13:03)
[2024-08-17] MEDS ORDERED: HYDROmorphone 0.5 MG/0.5 ML SYRINGE IVP PRN ×2 (13:03)
[2024-08-17] MEDS ORDERED: NALOXONE 0.4 MG/ML 1 ML VIAL IV PRN (13:03)
[2024-08-17] MEDS: LACTATED RINGERS 1,000 ML IV ONE (13:09)
--- NOTE | 2024-08-17 13:25 | P.OP ---
Date of Procedure: 08/17/24 Preoperative Diagnosis: Right knee severe tricompartmental osteoarthrosis Postoperative Diagnosis: Same Procedure(s) Performed: Right total knee arthroplastycementedcruciate retaining Implants: DePuy attune size 7 cemented femoral component, size 6 cemented tibial component, 9 mm articular surface, 38 mm cemented patellar component. This is a cruciate retaining implant. Anesthesia: regional, spinal Surgeon: Frank Sanchez Sports Announcer #1: Alverto Rios Estimated Blood Loss (ml): 50 Pathology: none sent Condition: stable Disposition: PACU Indications for Procedure: The patient is a 73-year-old male who presents with progressive right knee pain secondary to osteoarthrosis despite conservative measures. A discussion of the risks and benefits of operative intervention versus continued conservative measures was made with the patient. He opted to proceed with surgery. Operative risks include infection, neurovascular injury, development of blood clots, possible component loosening, possible component failure, fracture, p ossible need for subsequent procedures was discussed. Informed consent was obtained. Operative Findings: As below Description of Procedure: The patient was brought to the operating room, and after induction of spinal anesthesia the right lower extremity was prepped and draped in a normal fashion. The tourniquet was inflated to 270 mmHg. A longitudinal incision extending 3 finger breaths above the superior pole of the patella extending to the medial aspect the tibial tubercle was then made. The skin and subcutaneous tissues were divided sharply. Electrocautery was used for hemostasis. A medial parapatellar arthrotomy was then performed. The medial soft tissues to include the superficial and deep portions of the medial collateral ligament as well as the medial hamstring tendons were elevated subperiosteally. The proximal medial tibia osteophytes were carefully removed. The patella was everted. The knee was flexed. A portion of the retropatellar fat pad was excised sharply. The anterior cruciate ligament was sacrificed. A starting hole was made in the distal femur 1 cm anterior to the posterior cruciate origin. An intramedullary femoral guide was gently inserted planning on 5 valgus distal cut with 9 mm distal resection. The cutting block was pinned in place. The distal cut was then made. The posterior referencing sizing guide was utilized. 3 of external rotation was built into the system and verified off the trans- epicondylar axis and the posterior condyles. I felt size 7 was most appropriate. The cutting block was pinned in place. The anterior, posterior, and chamfer cuts were then made. The bone fragments were removed. A sulcus cut was then made with the appropriate guide. The trial size 7 femoral component was then placed and was fully seated. There was good anterior to posterior and medial to lateral fit. The distal peg holes were then drilled. The trial component was then removed. Attention was then paid towards preparing the proximal tibia. An extra medullary guide was utilized in line with the tibial shaft and second metatarsal distally. A 7 posterior slope was planned. I planned on 2 mm resection from the medial compartment. The cutting block was pinned in place. The proximal tibial cut was then made. The bone was removed in one fragment. The remnants of the medial and lateral menisci were excised the capsule junction with electrocautery. The tibia sized most appropriately at size 6. The posterior osteophytes off the distal femur were carefully removed w ith a curved osteotome. The trial tibial and femoral components were placed along with a 9 millimeters articular surface. I was able to obtain full flexion and extension with good stability with varus and valgus stress. After several flexion and extension cycles, the tibial rotation was marked with electrocautery in line with the medial one third of the tibial tubercle. Attention was then paid towards preparing the patella. A patella reamer was utilized taking this down to 14 mm of bone stock. A good flush cut was made. The patella sized most appropriately at 38 millimeters. The peg holes were then drilled. The trial component was placed. The knee was taken through a range of motion. I had good patellofemoral tracking with no hands technique. The trial components were then removed. The tibia was prepared in the appropriate rotation with appropriate drill and keel punch. The flexion and extension gaps were checked and felt to be symmetric. The bony surfaces were prepared with pulsatile lavage and dried. The deep tibial component was then cemented in place and was fully seated. Excess cement was removed. The femoral component was cemented in place and was fully seated. Again excess cement was removed. The trial 9 millimeters surface was then inserted in the knee was put in full extension. The patella component was cemented in place. After the cement had sufficiently hardened, the knee was again taken through a range of motion. Again there was good stability in flexion and extension with varus and valgus stress. The trial articular surface was then removed. The final articular surface was placed and was impacted. Care was taken to avoid any soft tissue interposition. Pulsatile lavage was again utilized. The tourniquet was deflated with approximately 50 minutes total tourniquet time. There was minimal drainage therefore a deep drain was not placed. The medial parapatellar arthrotomy was then closed with #2 Ethibond suture. The subcutaneous tissues were reapproximated interrupted 2- 0 Vicryl sutures. The skin was reapproximated with 3-0 subarticular strata fix suture. Skin tape and adhesive was applied. A sterile dressing was applied. The patient was then awoken from sedation and transferred to recovery room in good condition. Blood loss was estimated at 50 milliliters. No complications were incurred. Sponge and needle counts were correct at the end the case. Alverto SALVADOR assisted during the major components this case to include exposure, bone resection, and implantation.
[2024-08-17] MEDS: ROPIVACAINE 1,100 MG, SODIUM CHLORIDE 0.9% 500 ML 330 ML, EMPTY PAIN BALL 1 EACH MISCELLANE PRN (13:45)
[2024-08-17] MEDS: HYDROmorphone 0.5 MG/0.5 ML SYRINGE IVP PRN (13:52)
[2024-08-17] MEDS: rOPINIRole HCL 4 MG TABLET PO SCH (21:30)
[2024-08-17] MEDS: SENNOSIDES-DOCUSATE SODIUM 1 EACH TAB PO SCH (21:30)
[2024-08-17] MEDS: MULTIVITAMINS, THERA 1 EACH TAB PO SCH (21:30)
[2024-08-17] MEDS: ATORVASTATIN 20 MG TAB PO SCH (21:30)
[2024-08-17] MEDS: DOXAZOSIN 4 MG TAB PO SCH (21:31)
--- NOTE | 2024-08-17 21:55 | P.CONS ---
History of Present Illness - Reason for Consult Consult date: 08/17/24 Medical management Requesting physician: Frank Sanchez - Chief Complaint Knee pain - History of Present Illness This is a 73-year-old patient who follows with Dr. Melendrez. Chronic stable medical conditions include hypertension, hyperlipidemia, restless leg syndrome. Has undergone right total knee arthroplasty. Currently sitting at the edge of the bed. No dizziness no lightheadedness. No nausea vomiting. Denies any cardiac history. Review of systems: GEN.: None EYES: None HEENT: None NECK: None RESPIRATORY: None CARDIOVASCULAR: None GASTROINTESTINAL: None GENITOURINARY: None MUSCULOSKELETAL: Joint pain LYMPHATICS: None HEMATOLOGICAL: None PSYCHIATRY: None NEUROLOGICAL: None Social history: Smoked less than 1 pack a day for close to 30 years but stopped about 30 years ago. Alcohol occasionally. . Retired as a pre school manager Physical examination: VITAL SIGNS: 97.9, 76, 17, 155 x 74, 96% room GENERAL: BMI 28.3, sitting at edge of bed awake comfortable. EYES: Pupils equal. Conjunctiva mo l. HEENT: External appearance of nose and ears normal, oral cavity grossly normal. NECK: JVD not raised; masses not palpable. HEART: First and second heart sounds are normal; no edema. LUNGS: Respiratory rate normal; clear to auscultation. ABDOMEN: Soft, nontender, liver spleen not palpable, no masses palpable. PSYCH: Alert and oriented x3; mood and affect mo l. MUSCULOSKELETAL:No Clubbing/cyanosis;muscles-grossly intact. Dressing over the right knee. NEUROLOGICAL: Cranial nerves grossly intact; no facial asymmetry, power and sensation grossly intact. LYMPHATICS: No lymph nodes palpable in the axilla and neck Assessment plan: -Right total knee arthroplasty IV cefazolin for infection prophylaxis. 1 dose of IV Decadron. Xarelto for DVT prophylaxis -Restless leg syndrome Requip 4 mg nightly -Essential hypertension Cardura 8 mg nightly -Hyperlipidemia Lipitor 20 mg nightly -Primary osteoarthritis Tylenol as needed -Care was discussed with the patient. Questions answered. Thank you Dr. Sanchez Past Medical History Past Medical History: Cancer, Hyperlipidemia, Hypertension Additional Past Medical History / Comment(s): restless leg syndrome, melanoma History of Any Multi-Drug Resistant Organisms: None Reported Past Surgical History: Appendectomy, Hernia Repair, Orthopedic Surgery, Tonsillectomy Additional Past Surgical History / Comment(s): R Knee, Vasectomy lft arm melanoma removed , rt shoulder scope, TRK Past Anesthesia/Blood Transfusion Reactions: No Reported Reaction Past Psychological History: No Psychological Hx Reported Smoking Status: Former smoker Past Alcohol Use History: Occasional Additional Past Alcohol Use History / Comment(s): smoked for about 30 yrs less than 1 ppd; quit 30 yrs ago Past Drug Use History: None Reported - Past Family History Mother Family Medical History: Cancer Medications and Allergies Home Medications Medication Instructions Recorded Confirmed Type Aspirin [Adult Low Dose Aspirin EC] 81 mg PO HS 07/01/17 08/17/24 History Doxazosin Mesylate [Cardura] 8 mg PO HS 07/01/17 08/17/24 History Multivitamin [Men's Multi-Vitamin] 1 each PO HS 07/01/17 08/17/24 History Simvastatin 40 mg PO HS 07/01/17 08/17/24 History rOPINIRole HCL 4 mg PO HS 07/01/17 08/17/24 History Allergies Allergy/AdvReac Type Severity Reaction Status Date / Time No Known Allergies Allergy Verified 08/17/24 10:56 Physical Exam Vitals: Vital Signs Temp Pulse Pulse Pulse Resp BP BP 08/17/24 19:11 97.9 F 76 17 155/74 08/17/24 15:12 97.8 F 47 L 19 179/74 08/17/24 14:20 46 L 16 172/66 08/17/24 14:05 46 L 16 168/88 08/17/24 13:50 55 L 16 184/85 08/17/24 13:35 50 L 16 168/75 08/17/24 13:20 96.8 F L 50 L 10 L 114/76 08/17/24 11:30 50 L 16 140/74 08/17/24 10:50 97.4 F L 62 16 158/79 Pulse Ox 08/17/24 19:11 96 08/17/24 15:12 92 L 08/17/24 14:20 95 08/17/24 14:05 97 08/17/24 13:50 98 08/17/24 13:35 98 08/17/24 13:20 96 08/17/24 11:30 98 08/17/24 10:50 97 Intake and Output 08/17/24 08/17/2424 06:59 14:59 22:59 Intake Total 1251 Output Total 50 Balance 1201 Intake: IV 1251 Output: Estimated Blood Loss 50 Other: # Voids 1 Weight 91.9 kg
[2024-08-18] MEDS: HYDROcodone/APAP 5-325MG 1 EACH TAB PO PRN (05:59)
--- NOTE | 2024-08-18 07:06 | P.PN ---
Progress Note - Text Progress Note Date: 08/18/24 (0700) Anesthesiology Postop day 1 status post total knee arthroplasty with adductor canal catheter. Patient doing well. VAS 4 out of 10. Gross strength intact in lower extremity. Afebrile. Denies alterations in sensorium. Catheter site intact. Heart regular rate Lungs nonlabored Abdomen nondistended Assessment: Postop day 1 status post total knee arthroplasty with adductor canal catheter Plan: 1.All questions answered. Maintain catheter 2 more days with patient removal at home. Instructions to be given at discharge. 2.This note was dictated using [email or web address] software. Please be advised there is a potential for misspellings or errors in remote sensing analyst.
[2024-08-18 08:33] VITALS: BP 150/70; PULSE 54; RESP 17; TEMP 98.4
[2024-08-18] MEDS: hydrOXYzine pamoate 25 MG CAP PO PRN (08:39)
[2024-08-18] MEDS: RIVAROXABAN 10 MG TAB PO SCH (08:40)
[2024-08-18 10:48] LABS: Basophils # (A) 0.01 X 10*3/uL (0.00-0.10); Basophils % (A) 0.1 %; Eosinophils # (A) 0.01 X 10*3/uL (0.04-0.35); Eosinophils % (A) 0.1 %; HCT 35.4 % (39.6-50.0); HGB 11.7 g/dL (13.0-17.0); Lymphocytes # (A) 0.89 X 10*3/uL (0.90-5.00); Lymphocytes % (A) 7.4 %; MCH 30.4 pg (27.0-32.0); MCHC 33.1 g/dL (32.0-37.0); MCV 91.9 FL (80.0-97.0); Mean Platelet Volume 13.4 FL (9.5-12.2); Monocytes # (A) 0.87 X 10*3/uL (0.20-1.00); Monocytes % (A) 7.2 %; NRBC Per 100 WBC 0 X 10*3/uL (0.00-0.01); Neutrophils # (A) 10.24 X 10*3/uL (1.80-7.70); Neutrophils % (A) 84.9 %; Platelet Count 128 X 10*3/uL (140-440); RBC 3.85 X 10*6/uL (4.40-5.60); RDW 13.9 % (11.5-14.5); WBC 12.06 X 10*3/uL (4.50-10.00)
[2024-08-18] MEDS: HYDROcodone/APAP 7.5-325MG 1 EACH TAB PO PRN (11:57)
--- NOTE | 2024-08-18 12:20 | P.DS ---
Providers Date of admission: 08/17/2024 Expected date of discharge: 08/18/24 Attending physician: Frank Sanchez Consults: 08/17/24 13:03 Consult Physician Routine Consulting Provider: Les Carver Consult Reason/Comments: medical management s/p right total knee arthroplasty Do you want consulting provider notified?: Yes Primary care physician: Unruly Aneesh [facility] Course: Date of admission: 08/17/2024 Date of discharge: 08/18/2024 Admission diagnosis: Right knee osteoarthritis Discharge diagnosis: Same Attending physician: Dr. Sanchez Surgical procedures: Right total knee arthroplasty Brief history: Patient is a 73-year-old male with a history of progressive primary right knee osteoarthritis. At this point patient has failed conservative treatment measures and has opted to proceed with a elective right total knee arthroplasty. Hospital course: Details of patient's surgery can be found in operative report. Patient tolerated the procedure well and was subsequently transported to orthopedic floor. Patient's orthopeidc and medical care was provided daily. Patient had daily laboratory tests performed for evaluation of overall blood counts. Patient had daily physical therapy to include strengthening range of motion as well as education with walker ambulation. Patient was treated with Xarelto for their postoperative DVT prophylaxis during their inpatient stay. Patient was noted to have a relatively uneventful postoperative course. Patient reported satisfactory pain control with oral pain medications by postoperative day 1. Patient showed satisfactory progress with physical therapy. Patient moved steadily through the program and had no difficulty meeting the goals by postoperative day 1. Given patient's otherwise satisfactory course and having met physical therapy goals, plan is to discharge patient home with health services on postoperative day 1. Discharge condition/disposition: Patient will be discharged home with health services in stable condition. Discharge medications: Instructions are given on resumption of patient's normal daily medications per primary care recommendation, in addition patient will be prescribed [place]; senna; Eliquis 2.5 mg twice daily x 2 weeks. Discharge instructions: 1. Wound care and infection precautions, keep incision dry and covered while showering, no lotions, creams, moisturizers. No soaking, tubs, pools, hottubs. Do not scrub over the incision. 2. Weight-bear as tolerated with walker / cane until follow-up. 3. Ice and elevate when necessary. Do not exceed 20 minutes per hour with ice pack. 4. Utilize compression sleeve until seen at first follow up appointment. 5. Visiting nursing care. 6. Home physical therapy including home CPM. 7. Pain meds and anticoagulants per prescription. 8. Pain medication has potential to cause constipation. Increase oral fluid and fiber intake. Contact primary care provider if you have not had a bowel movement within 48 hours after discharge 9. No anti-inflammatory medication until discussed at first post operative visit, this including Motrin, Aleve, Mobic, Diclofenac. 10. Follow up in office at 2 weeks postop with Raheem Hernandez PA-C / Alverto Rios PA-C 11. Follow up with your primary care doctor 7-10 days after discharge. 12. Contact [facility] with any questions, . Assessment: Right knee osteoarthritis Procedures: Right total knee arthroplasty Patient Condition at Discharge: Good Plan - Discharge Summary Discharge Rx Participant: Yes New Discharge Prescriptions: New Ferrous Sulfate [Feosol] 325 mg PO DAILY #30 tab Apixaban [Eliquis] 2.5 mg PO BID #60 tab Sennosides-Docusate Sodium [Senokot-S] 2 each PO HS #30 tab HYDROcodone/APAP 7.5-325MG [[place] 7.5-325] 1 - 2 tab PO Q6HR PRN #32 tab PRN Reason: Pain Continue rOPINIRole HCL 4 mg PO HS Simvastatin 40 mg PO HS Multivitamin [Men's Multi-Vitamin] 1 each PO HS Doxazosin Mesylate [Cardura] 8 mg PO HS Aspirin [Adult Low Dose Aspirin EC] 81 mg PO HS Discharge Medication List Aspirin [Adult Low Dose Aspirin EC] 81 mg PO HS 07/01/17 [History] Doxazosin Mesylate [Cardura] 8 mg PO HS 07/01/17 [History] Multivitamin [Men's Multi-Vitamin] 1 each PO HS 07/01/17 [History] Simvastatin 40 mg PO HS 07/01/17 [History] rOPINIRole HCL 4 mg PO HS 07/01/17 [History] Apixaban [Eliquis] 2.5 mg PO BID #60 tab 08/18/24 [Rx] Ferrous Sulfate [Feosol] 325 mg PO DAILY #30 tab 08/18/24 [Rx] HYDROcodone/APAP 7.5-325MG [[place] 7.5-325] 1 - 2 tab PO Q6HR PRN #32 tab 08/18/24 [Rx] Sennosides-Docusate Sodium [Senokot-S] 2 each PO HS #30 tab 08/18/24 [Rx] Follow up Appointment(s)/Referral(s): Alverto Rios, SRINIVSA [PHYSICIAN POWDER BLENDER] - 2 Weeks [facility] [NON-STAFF] - As Needed (Continuous Passive Motion knee m achine) Tiffany Spivey NPC [REFERRING] - 1 Week [facility] Visiting Nurse, [NON-STAFF] - As Needed Patient Instructions/Handouts: Knee Replacement (GEN) Activity/Diet/Wound Care/Special Instructions: Orthopedic Discharge Instructions: 1. Wound care and infection precautions, keep incision dry and covered while showering, no lotions, creams, moisturizers. No soaking, pools, hot tubs. Do not scrub over incision. 2. Weight-bear as tolerated with walker / cane until follow-up. 3. Ice and elevate when necessary. Do not exceed 20 minutes per hour with ice pack. 4. Utilize compression sleeve until seen at first follow up appointment. 5. Pain meds and anticoagulants per prescription. 6. Pain medication has potential to cause constipation. Increase oral fluid and fiber intake. Contact primary care provider if you have not had a bowel movement within 48 hours after discharge. 7. No anti-inflammatory medication until discussed at first post operative visit, this including Motrin, Aleve, Mobic, Diclofenac. 8. Follow up in office at 2 weeks postop with Raheem Hernandez PA-C / Alverto Rios PA-C 9. Follow up with your primary care doctor 7-10 days after discharge. 10. Contact [facility] with any questions, . Keep incision clean, dry, intact. While showering, cover fusion tape with Saran wrap. Keep fusion tape on until follow-up appointment in office in 2 weeks. Discharge Disposition: HOME WITH HOME HEALTH SERVICES
--- NOTE | 2024-08-18 12:33 | P.PN ---
Subjective Progress Note Date: 08/18/24 Principal diagnosis: Right knee osteoarthritis Patient was seen at bedside this morning lying summary, position with dressing present over right knee. Patient says for the past few hours his knee pain has increased a little bit since he finished working with physical therapy. Patient says the pain medication does help somewhat. Patient says he does have a walker at home. Patient denies any other issues at this time. Patient says he has urinated since surgery yesterday. No bowel movement yet however, patient says he has been passing gas. Objective - Vital Signs Vital signs: Vital Signs Temp 98.4 F 08/18/24 07:10 Pulse 54 L 08/18/24 07:10 Resp 17 08/18/24 07:10 BP 150/70 08/18/24 07:10 Pulse Ox 96 08/18/24 07:10 FiO2 Intake & Output 08/17/24 08/18/24 08/18/24 18:59 06:59 18:59 Intake Total 1251 Output Total 50 Balance 1201 Weight 91.9 kg Intake: IV 1251 Output: Estimated Blood Loss 50 Other: # Voids 1 3 - Exam Right knee: Incision is clean, dry, and intact. The exofin fusion tape is in good condition. There is minimal soft tissue swelling and ecchymosis surrounding the medial and lateral aspects of the incision. Calf is soft, no tenderness with palpation. Plantar flexion, dorsiflexion, EHL, FHL are intact. Sensory exam to light touch throughout the extremity is intact, dorsal pedis pulses 2+. - Labs CBC & Chem 7: 08/18/24 05:26 Labs: Abnormal Lab Results - Last 24 Hours (Table) 08/18/24 Range/Units 05:26 WBC 12.06 H (4.50-10.00) X 10*3/uL RBC 3.85 L (4.40-5.60) X 10*6/uL Hgb 11.7 L (13.0-17.0) g/dL Hct 35.4 L (39.6-50.0) % Plt Count 128 L (140-440) X 10*3/uL MPV 13.4 H (9.5-12.2) FL Neutrophils # 10.24 H (1.80-7.70) X 10*3/uL Lymphocytes # 0.89 L (0.90-5.00) X 10*3/uL Eosinophils # 0.01 L (0.04-0.35) X 10*3/uL Assessment and Plan Assessment: 1. right knee osteoarthritis -Postop day 1 status post right total knee arthroplasty Plan: 1. right knee osteoarthritis -right total knee arthroplasty performed yesterday, 08/17/2024. Patient stable bedside this morning. Patient did do well with therapy this morning. Patient does have a walker for home. Discharge home to day with health services. 2. Appreciate medical management 3. Pain management -[place] 4. GI prophylaxis -senna 5. DVT prophylaxis -Xarelto in hospital. Going home with Eliquis 2.5 mg twice daily x 2 weeks 6. PT/OT - weight-bearing as tolerated with walker 7. Encourage incentive spirometer use 8. Discharge planning -home today with health services Time with Patient: Less than 30
--- NOTE | 2024-08-18 16:22 | P.PN ---
Progress Note - Text Progress Note Date: 08/18/24 - Chief Complaint Knee pain - History of Present Illness This is a 73-year-old patient who follows with Dr. Melendrez. Chronic stable medical conditions include hypertension, hyperlipidemia, restless leg syndrome. Has undergone right total knee arthroplasty. Currently sitting at the edge of the bed. No dizziness no lightheadedness. No nausea vomiting. Denies any cardiac history. August 18: Did ambulate. Some pain present. No nausea vomiting. Tolerated diet. present. Questions answered. Social history: Smoked less than 1 pack a day for close to 30 years but stopped about 30 years ago. Alcohol occasionally. . Retired as a preliminary school psychologist Physical examination: VITAL SIGNS: 98.4, 54, 17, 150/70, 96% room air GENERAL: Sitting in bed, comfortable EYES: Pupils equal. Conjunctiva mo l. HEENT: External appearance of nose and ears normal, oral cavity grossly normal. NECK: JVD not raised; masses not palpable. HEART: First and second heart sounds are normal; no edema. LUNGS: Respiratory rate normal; clear to auscultation. ABDOMEN: Soft, nontender, liver spleen not palpable, no masses palpable. PSYCH: Alert and oriented x3; mood and affect mo l. MUSCULOSKELETAL:No Clubbing/cyanosis;muscles-grossly intact. Dressing over the right knee. Investigations: August 18: White count 12 hemoglobin 9.7 platelets 128 Assessment plan: -Right total knee arthroplasty IV cefazolin for infection prophylaxis. 1 dose of IV Decadron. Xarelto for DVT prophylaxis -Restless leg syndrome Requip 4 mg nightly -Acute postprocedure blood loss anemia expected from surgery Add ferrous sulfate 325 daily -Mild leukocytosis. Likely reactive from surgery No clinical evidence of infection. No urinary respiratory symptoms. Incision healing well per Ortho -Essential hypertension Cardura 8 mg nightly -Hyperlipidemia Lipitor 20 mg nightly -Primary osteoarthritis Tylenol as needed Discussed. Follow-up with PCP. Thank you Dr. Sanchez Past Medical History Past Medical History: Cancer, Hyperlipidemia, Hypertension Additional Past Medical History / Comment(s): restless leg syndrome, melanoma History of Any Multi-Drug Resistant Organisms: None Reported Past Surgical History: Appendectomy, Hernia Repair, Orthopedic Surgery, Tonsillectomy Additional Past Surgical History / Comment(s): R Knee, Vasectomy lft arm melanoma removed , rt shoulder scope, TRK Past Anesthesia/Blood Transfusion Reactions: No Reported Reaction Past Psychological History: No Psychological Hx Reported Smoking Status: Former smoker Past Alcohol Use History: Occasional Additional Past Alcohol Use History / Comment(s): smoked for about 30 yrs less than 1 ppd; quit 30 yrs ago Past Drug Use History: None Reported
--- NOTE | 2024-08-18 17:25 | XR ---
EXAMINATION TYPE: XR knee limited RT DATE OF EXAM: 08/17/2024 CLINICAL HISTORY: Postoperative evaluation Two views of the right knee are submitted. Identified are changes of total knee arthroplasty with femoral and tibial components appearing well seated. Postsurgical soft tissue changes are noted. Alignment is anatomic. [facility], , 08/18/2024 5:22 PM
== END 2024-08-18 14:07 | disposition home health service (06) ==
LOC: OR 10:26 → 4SSUR 13:15 → OR 08-18 14:07
PROVIDERS: ATTEND Orthopaedic Surgery
DX: M17.11 Unilateral primary osteoarthritis, right knee (principal); E78.5 Hyperlipidemia, unspecified; I10 Essential (primary) hypertension; Z87.891 Personal history of nicotine dependence
CPT/HCPCS: 27447; 97161; 64999; 64448; 85025; 73560; C1713 ×2; C1776; C1751; J2250; J1100; J0690 ×3; J2405; J3010; J2795; J2704; J1171; J1596